=== PATIENT | female | born 2000 | race Caucasian/White ===

== ENCOUNTER 2025-05-25 02:37 | Emergency (ER) | payer SELFPAY ==
[~2025-05-25] VITALS: Ht 152.4 cm; Wt 52.0 kg
[2025-05-25 02:43] VITALS: O2SAT 100
[2025-05-25 03:01] LABS: CLARITY URINE CLOUDY (CLEAR); COLOR URINE RED (YELLOW); GLUCOSE URINE NEGATIVE (NEGATIVE); KETONES URINE NEGATIVE (NEGATIVE); LEUKOCYTE ESTERASE URINE 3+ (NEGATIVE); NITRITE URINE NEGATIVE (NEGATIVE); OCCULT BLOOD URINE 3+ (NEGATIVE); PH URINE 6.0 (4.5-8.0); PROTEIN URINE 3+ (NEGATIVE); SPECIFIC GRAVITY URINE 1.008 (1.005-1.030); UROBILINOGEN URINE 0.2 E.U./dL (0.2-1.0)
[2025-05-25] MEDS ORDERED: NITR-87 MT (03:03)
[2025-05-25] MEDS: NITROFURANTOIN 100MG M/M CAPSULE PO ONE (03:24)
[2025-05-25] MEDS ORDERED: CEPH250S38 PO (03:34)
[2025-05-25 03:43] LABS: BACTERIA URINE 1+; RBC URINE TNTC /hpf (0-2); SQUAMOUS EPITHELIAL CELL URINE 1+ /lpf (RARE/1+); WBC URINE 25-50 /hpf (0-2)
[2025-05-25 03:47] VITALS: BP 132/75; PULSE 83; RESP 16; TEMP 37; O2SAT 100
== END 2025-05-25 03:52 | disposition home or self-care (01) ==
LOC: ER 02:37
DX: N39.0 Urinary tract infection, site not specified (principal)
CPT/HCPCS: 81003; 81025; 87086; 87186; 87077; 99283; Z7610